=== PATIENT | male | born 1965 | race Caucasian/White ===

== ENCOUNTER 2018-08-12 20:27 | Emergency (ER) | payer OTHER, SELFPAY ==
[2018-08-12] MEDS ORDERED: ALBUTEROL 2.5 MG/3 ML NEB SOL ONE (21:52)
[2018-08-12] MEDS ORDERED: IPRATROPIUM BROM 0.5MG/2.5ML ONE (21:52)
[2018-08-12 22:03] LABS: Absolute Lymphocytes (CBC) 2.8 K/uL (0.7-4.9); Absolute Monocytes 1.1 K/uL (0.1-1.3); Absolute Neutrophil 4.8 K/uL (1.8-8.0); Basophils % 0.5 % (0-1.3); Hematocrit 44.5 % (39.6-49.0); Lymphocytes % 31.1 % (15.3-44.8); MPV 9.4 fL (7.6-11.3); Monocytes % 11.7 % (3.3-12.3); RBC Red Blood Cell Count 5.18 M/uL (4.33-5.43)
[2018-08-12 22:09] LABS: Protime INR 0.89
[2018-08-12 22:56] LABS: ALT/SGPT 46 U/L (12-78); AST/SGOT 18 U/L (15-37); Alkaline Phosphatase 151 U/L (45-117); BUN Blood Urea Nitrogen 12 mg/dL (7-18); Bicarbonate 23 mmol/L (21-32); Bilirubin Direct < 0.1 mg/dL (0-0.2); Bilirubin Total 0.3 mg/dL (0.2-1.0); CKMB Creatine Kinase MB 2.9 ng/mL (0.3-3.6); Creatine Phosphokinase 209 U/L (39-308); Glucose Level 133 mg/dL (74-106); Magnesium 2.4 mg/dL (1.8-2.4); NT PRO-BNP 11 pg/mL (<125); Potassium 3.4 mmol/L (3.5-5.1); Protein, Total 7.1 g/dL (6.4-8.2); Sodium Level 143 mmol/L (136-145); Troponin (Emerg Dept Use Only) < 0.02 ng/mL (0.0-0.045)
[2018-08-12 23:35] LABS: Thyroid Stimulating Hormone 4.64 uIU/mL (0.360-3.740)
--- NOTE | 2018-08-13 00:10 | ER ---
Nurse's Notes [facility] Name: Yuan Alejandro Age: 52 yrs Sex: Male : 1965 Arrival Date: 08/12/2018 Time: 20:30 Bed 30 Private MD: Diagnosis: Hypothyroidism, unspecified;Acute upper respiratory infection, unspecified;Malaise and fatigue Presentation: 08/12 20:39 Presenting complaint: Patient states: BP has gone up this weekend, has been off BP meds iw for a couple years, also has been SOB and thirsty for a couple days, BP 139/93 at home, HR 106, pt c/o feeling hot and sweaty and achy. Transition of care: patient was not received from another setting of care. Onset of symptoms was August 10, 2018. Risk Assessment: Do you want to hurt yourself or someone else? Patient reports no desire to harm self or others. Initial Sepsis Screen: Does the patient meet any 2 criteria? No. Patient's initial sepsis screen is negative. Does the patient have a suspected source of infection? No. Patient's initial sepsis screen is negative. Care prior to arrival: None. 20:39 Method Of Arrival: Ambulatory iw 20:39 Acuity: AD 3 iw Triage Assessment: 21:52 General: Appears in no apparent distress. comfortable, Behavior is calm, cooperative. rv Respiratory: Reports shortness of breath Onset: The symptoms/episode began/occurred suddenly, the patient has mild shortness of breath. Historical: - Allergies: 20:42 No Known Allergies; iw - Home Meds: 20:42 None [Active]; iw - PMHx: 20:42 Hypertension; iw - PSHx: 20:42 None; iw - Immunization history:: Adult Immunizations Adult Immunizations not up to date. - Social history:: Smoking status: Patient/guardian denies using tobacco. - Ebola Screening: : Patient negative for fever greater than or equal to 101.5 degrees Fahrenheit, and additional compatible Ebola Virus Disease symptoms Patient denies exposure to infectious person Patient denies travel to an Ebola-affected area in the 21 days before illness onset No symptoms or risks identified at this time. Screenin:52 Abuse screen: Denies threats or abuse. Denies injuries from another. Nutritional rv screening: No deficits noted. Tuberculosis screening: No symptoms or risk factors identified. Fall Risk None identified. Assessment: 21:51 General: Appears in no apparent distress. comfortable, Behavior is calm, cooperative. rv Pain: Denies pain. Neuro: Level of Consciousness is awake, alert, obeys commands, Oriented to person, place, time, situation. Cardiovascular: Patient's skin is warm and dry. Rhythm is regular. Respiratory: Airway is patent Respiratory effort is even, Breath sounds are clear bilaterally. GI: No signs and/or symptoms were reported involving the gastrointestinal system. : No signs and/or symptoms were reported regarding the genitourinary system. EENT: No signs and/or symptoms were reported regarding the EENT system. Derm: Skin is intact. Musculoskeletal: No signs and/or symptoms reported regarding the musculoskeletal system. 23:07 Reassessment: Patient appears in no apparent distress at this time. Patient and/or rv family updated on plan of care and expected duration. Pain level reassessed. Patient is alert, oriented x 3, equal unlabored respirations, skin warm/dry/pink. Patient denies pain at this time. Vital Signs: 20:41 BP 121 / 81; Pulse 96; Resp 16; Temp 97.8(TE); Pulse Ox 98% on R/A; Weight 122.47 kg; iw Height 5 ft. 9 in. (175.26 cm); Pain 2/10; 21:53 BP 130 / 86; Pulse 87; Resp 18; Pulse Ox 96% on Nebulizer Mask; rv 22:30 BP 128 / 90; Pulse 97; Resp 18; Pulse Ox 94% on 2 lpm NC; rv 23:06 BP 126 / 86; Pulse 86; Resp 17; Temp 98.2; Pulse Ox 94% 2 lpm ; rv 23:30 BP 122 / 93; Pulse 91; Resp 16; Pulse Ox 94% ; rv 08/13 00:22 BP 129 / 91; Pulse 84; Resp 18; Temp 98.2; Pulse Ox 94% 2 lpm ; rv 08/12 20:41 Body Mass Index 39.87 (122.47 kg, 175.26 cm) iw ED Course: 08/12 20:30 Patient arrived in ED. es 20:41 Triage completed. iw 20:41 Arm band placed on. iw 21:18 John Billy, YASH is Primary Nurse. rv 21:21 Arelis Gan FNP-C is [facility]. kb 21:21 Eric Irving MD is Attending Physician. kb 21:47 Inserted saline lock: 20 gauge in right antecubital area, using aseptic technique. rv Blood collected. 21:48 XRAY Chest (1 view) In Process Unspecified. EDMS 21:52 Patient has correct armband on for positive identification. Bed in low position. Call rv light in reach. Side rails up X 1. Adult w/ patient. surveillance monitor on. Pulse ox on. NIBP on. 08/13 00:23 No provider procedures requiring assistance completed. IV discontinued, intact, rv bleeding controlled, No redness/swelling at site. Pressure dressing applied. Administered Medications: 08/12 21:35 Drug: Albuterol 2.5 mg Route: Inhalation; rv 22:42 Follow up: Response: No adverse reaction rv 21:35 Drug: AtroVENT Aerosol 0.5 mg Route: Inhalation; rv 22:42 Follow up: Response: No adverse reaction rv Outcome: 08/13 00:09 Discharge ordered by . kb 00:23 Discharged to home ambulatory. rv 00:23 Condition: good 00:23 Discharge instructions given to patient, Instructed on discharge instructions, follow up and referral plans. medication usage, Demonstrated understanding of instructions, follow-up care, medications, Prescriptions given X 1. 00:24 Patient left the ED. rv Signatures: Dispatcher [employer] [facility] Arelis Gan FNP-C FNP-Macarena Collins Irene, RN RN iw Vicente, Ronaldo, RN RN rv
--- NOTE | 2018-08-13 00:10 | EDPHYS ---
Physician Documentation [facility] Name: Yuan Alejandro Age: 52 yrs Sex: Male : 1965 Arrival Date: 08/12/2018 Time: 20:30 Bed 30 Private MD: ED Physician Eric Irving HPI: 08/13 01:00 This 52 yrs old Male presents to ER via Ambulatory with complaints of Blood kb Pressure Problem, Shortness Of Breath. 01:00 The patient has shortness of breath at rest. Onset: The symptoms/episode began/occurred kb 3 day(s) ago. Duration: The symptoms are intermittent. The patient's shortness of breath is aggravated by nothing, is alleviated by nothing. Associated signs and symptoms: Pertinent positives: malaise, fatigue, fluctuating bp . Severity of symptoms: At their worst the symptoms were mild moderate in the emergency department the symptoms are unchanged. The patient has not experienced similar symptoms in the past. The patient has not recently seen a physician. Pt reports he has had body aches, fatigue, malaise, shortness of breath and fluctuating BP all weekend. Denies fever. Historical: - Allergies: 08/12 20:42 No Known Allergies; iw - Home Meds: 20:42 None [Active]; iw - PMHx: 20:42 Hypertension; iw - PSHx: 20:42 None; iw - Immunization history:: Adult Immunizations Adult Immunizations not up to date. - Social history:: Smoking status: Patient/guardian denies using tobacco. - Ebola Screening: : Patient negative for fever greater than or equal to 101.5 degrees Fahrenheit, and additional compatible Ebola Virus Disease symptoms Patient denies exposure to infectious person Patient denies travel to an Ebola-affected area in the 21 days before illness onset No symptoms or risks identified at this time. ROS: 08/13 00:59 ENT: Negative for injury, pain, and discharge, Neck: Negative for injury, pain, and kb swelling, Cardiovascular: Negative for chest pain, palpitations, and edema, Abdomen/GI: Negative for abdominal pain, nausea, vomiting, diarrhea, and constipation, Back: Negative for injury and pain, MS/Extremity: Negative for injury and deformity, Skin: Negative for injury, rash, and discoloration, Neuro: Negative for headache, weakness, numbness, tingling, and seizure. Constitutional: Positive for body aches, fatigue, malaise, Negative for chills, fever, poor PO intake, weight loss. Respiratory: Positive for shortness of breath. Exam: 00:59 Constitutional: This is a well developed, well nourished patient who is awake, alert, kb and in no acute distress. Head/Face: Normocephalic, atraumatic. ENT: Nares patent. No nasal discharge, no septal abnormalities noted. Tympanic membranes are normal and external auditory canals are clear. Oropharynx with no redness, swelling, or masses, exudates, or evidence of obstruction, uvula midline. Mucous membranes moist. Neck: Trachea midline, no thyromegaly or masses palpated, and no cervical lymphadenopathy. Supple, full range of motion without nuchal rigidity, or vertebral point tenderness. No Meningismus. Chest/axilla: Normal chest wall appearance and motion. Nontender with no deformity. No lesions are appreciated. Cardiovascular: Regular rate and rhythm with a normal S1 and S2. No gallops, murmurs, or rubs. Normal PMI, no JVD. No pulse deficits. Respiratory: Lungs have equal breath sounds bilaterally, clear to auscultation and percussion. No rales, rhonchi or wheezes noted. No increased work of breathing, no retractions or nasal flaring. Abdomen/GI: Soft, non-tender, with normal bowel sounds. No distension or tympany. No guarding or rebound. No evidence of tenderness throughout. Skin: Warm, dry with normal turgor. Normal color with no rashes, no lesions, and no evidence of cellulitis. MS/ Extremity: Pulses equal, no cyanosis. Neurovascular intact. Full, normal range of motion. Neuro: Awake and alert, GCS 15, oriented to person, place, time, and situation. Cranial nerves II-XII grossly intact. Motor strength 5/5 in all extremities. Sensory grossly intact. Cerebellar exam normal. Normal gait. 00:59 ECG was reviewed by the Attending Physician. Vital Signs: 08/12 20:41 BP 121 / 81; Pulse 96; Resp 16; Temp 97.8(TE); Pulse Ox 98% on R/A; Weight 122.47 kg; iw Height 5 ft. 9 in. (175.26 cm); Pain 2/10; 21:53 BP 130 / 86; Pulse 87; Resp 18; Pulse Ox 96% on Nebulizer Mask; rv 22:30 BP 128 / 90; Pulse 97; Resp 18; Pulse Ox 94% on 2 lpm NC; rv 23:06 BP 126 / 86; Pulse 86; Resp 17; Temp 98.2; Pulse Ox 94% 2 lpm ; rv 23:30 BP 122 / 93; Pulse 91; Resp 16; Pulse Ox 94% ; rv 08/13 00:22 BP 129 / 91; Pulse 84; Resp 18; Temp 98.2; Pulse Ox 94% 2 lpm ; rv 08/12 20:41 Body Mass Index 39.87 (122.47 kg, 175.26 cm) iw MDM: 08/12 21:21 Patient medically screened. kb 08/13 00:08 Data reviewed: vital signs, nurses notes. Data interpreted: Pulse oximetry: on room air kb is 94 %. Interpretation: borderline. Counseling: I had a detailed discussion with the patient and/or guardian regarding: the historical points, exam findings, and any diagnostic results supporting the discharge/admit diagnosis, lab results, radiology results, the need for outpatient follow up, a family practitioner, to return to the emergency department if symptoms worsen or persist or if there are any questions or concerns that arise at home. 08/12 21:31 Order name: Basic Metabolic Panel kb 08/12 21: Order name: CBC with Diff kb 08/12 21:31 Order name: LFT's kb 08/12 21:31 Order name: Magnesium; Complete Time: 23:00 kb 08/12 21:31 Order name: NT PRO-BNP; Complete Time: 23:00 kb 08/12 21: Order name: PT-INR; Complete Time: 22:14 kb 08/12 21:31 Order name: Troponin (emerg Dept Use Only); Complete Time: 23:00 kb 08/12 21: Order name: D-Dimer; Complete Time: 22:14 kb 08/12 21: Order name: CPK; Complete Time: 23:00 kb 08/12 21: Order name: Ckmb; Complete Time: 23:00 kb 08/12 21:32 Order name: Basic Metabolic Panel; Complete Time: 23:00 EDMS 08/12 21:32 Order name: CBC with Automated Diff; Complete Time: 22:14 EDMS 08/12 21:32 Order name: Liver (Hepatic) Function; Complete Time: 23:00 EDMS 08/12 23:12 Order name: TSH; Complete Time: 00:04 kb 08/12 21:31 Order name: XRAY Chest (1 view) kb 08/12 21:31 Order name: EKG; Complete Time: 21:32 kb 08/12 21:31 Order name: Cardiac monitoring; Complete Time: 21:50 kb 08/12 21:31 Order name: EKG - Nurse/Tech; Complete Time: 21:50 kb 08/12 21:31 Order name: IV Saline Lock; Complete Time: 21:50 kb 08/12 21:31 Order name: Labs collected and sent; Complete Time: 21:50 kb 08/12 21:31 Order name: O2 Per Protocol; Complete Time: 21:50 kb 08/12 21:31 Order name: O2 Sat Monitoring; Complete Time: 21:50 kb 08/12 23:36 Order name: T4 Free; Complete Time: 00:04 EDMS EC:59 Rate is 80 beats/min. Rhythm is regular. QRS Ridge is Normal. ID interval is normal at kb 186 msec. QRS interval is normal at 72 msec. QT interval is normal at 354 msec. Interpreted by me. Reviewed by me. Administered Medications: 08/12 21:35 Drug: Albuterol 2.5 mg Route: Inhalation; rv 22:42 Follow up: Response: No adverse reaction rv 21:35 Drug: AtroVENT Aerosol 0.5 mg Route: Inhalation; rv 22:42 Follow up: Response: No adverse reaction rv Disposition: 08/13 06:55 Co-signature as Attending Physician, Eric Irving MD I agree with the assessment and tw4 plan of care. Disposition: 08/13/18 00:09 Discharged to Home. Impression: Hypothyroidism, unspecified, Acute upper respiratory infection, unspecified, Malaise and fatigue. - Condition is Stable. - Discharge Instructions: Hypothyroidism, Viral Respiratory Infection, [id number]. - Prescriptions for Albuterol Sulfate 90 mcg/actuation - inhale 1-2 puff by INHALATION route every 4-6 hours; 1 Inhaler. - Medication Reconciliation Form, Thank You Letter, Antibiotic Education, Prescription Opioid Use form. - Follow up: Emergency Department; When: As needed; Reason: Worsening of condition. Follow up: Private Physician; When: 2 - 3 days; Reason: Recheck today's complaints, Continuance of care, Re-evaluation by your physician. Signatures: Dispatcher [employer] EDArelis Zhang, CAMILLE-C ALTO SINGER-Lorraine Bolton, RN RN iw Eric Irving MD MD tw4 John Billy RN RN rv Corrections: (The following items were deleted from the chart) 00:10 00:09 08/13/2018 00:09 Discharged to Home. Impression: Hypothyroidism, unspecified; kb Myalgia. Condition is Stable. Forms are Medication Reconciliation Form, Thank You Letter, Antibiotic Education, Prescription Opioid Use. Follow up: Emergency Department; When: As needed; Reason: Worsening of condition. Follow up: Private Physician; When: 2 - 3 days; Reason: Recheck today's complaints, Continuance of care, Re-evaluation by your physician. kb 00:24 00:10 08/13/2018 00:09 Discharged to Home. Impression: Hypothyroidism, unspecified; rv Acute upper respiratory infection, unspecified; Malaise and fatigue. Condition is Stable. Discharge Instructions: Hypothyroidism, Viral Respiratory Infection, [id number]. Prescriptions for Albuterol Sulfate 90 mcg/actuation - inhale 1-2 puff by INHALATION route every 4-6 hours; 1 Inhaler. and Forms are Medication Reconciliation Form, Thank You Letter, Antibiotic Education, Prescription Opioid Use. Follow up: Emergency Department; When: As needed; Reason: Worsening of condition. Follow up: Private Physician; When: 2 - 3 days; Reason: Recheck today's complaints, Continuance of care, Re-evaluation by your physician. kb
--- NOTE | 2018-08-13 07:10 | RAD REPORT ---
EXAM DESCRIPTION: RAD - Chest Single View - 08/12/2018 9:49 pm CLINICAL HISTORY: Chest pain, hypertension COMPARISON: None. TECHNIQUE: AP portable chest image was obtained 2145 hours . FINDINGS: Lungs are clear. Body habitus and portable technique accentuate lung base markings. Heart and vasculature are normal. No measurable pleural effusion and no pneumothorax. No acute bony abnorma lity seen. No acute aortic findings suspected. IMPRESSION: No acute cardiopulmonary process.
--- NOTE | 2018-08-13 12:51 | EKG ---
Test Date: 2018-08-12 Test Time: 21:16:58 [employer] Floor [employer] Applier: BHARGAV MEASUREMENT RESULTS: Intervals: Rate: 80 TN: 186 QRSD: 72 QT: 354 QTc: 408 [place]: P: 49 TN: 186 QRS: 1 T: -10 INTERPRETIVE STATEMENTS: Normal sinus rhythm Inferior infarct, age undetermined Abnormal ECG No previous ECG available for comparison Electronically Signed On 08-13-18 12:50:22 CDT by Jimy Cline
== END 2018-08-13 00:24 | disposition home or self-care (01) ==
LOC: ER 20:27 → EDBD 20:27 → ER 08-13 00:24
DX: E03.9 Hypothyroidism, unspecified (principal); J06.9 Acute upper respiratory infection, unspecified; R53.83 Other fatigue; I10 Essential (primary) hypertension
CPT/HCPCS: 36415; 71045; 80048; 80076; 82550; 82553; 83735; 83880; 84439; 84443; 84484; 85025; 85379; 85610; 93005; 99285